=== PATIENT | male | born 1970 | race Caucasian/White ===

== ENCOUNTER 2019-05-23 12:15 | Emergency (ER) | payer BC ==
[~2019-05-23] VITALS: Ht 185.4 cm; Wt 112.5 kg
[2019-05-23 12:23] VITALS: BP 116/80; Ht 185.4 cm; Wt 112.5 kg
[2019-05-23 12:50] LABS: PLATELET COUNT 234 x10^3mcL (130-400)
[2019-05-23 12:51] LABS: RED CELL DISTRIBUTION WIDTH 15.2 % (11.5-14.5)
[2019-05-23 13:15] LABS: CALCIUM 9.6 mg/dL (8.5-10.1); CARBON DIOXIDE 28.8 mmol/L (21-32); CHLORIDE SERUM 106 mmol/L (98-107); CREATININE SERUM 1.1 mg/dL (0.7-1.3); GFR1 > 60 mL/min; GLUCOSE SERUM 86 mg/dL (74-106); POTASSIUM SERUM 4.3 mmol/L (3.5-5.1); SODIUM SERUM 142 mmol/L (136-145)
[2019-05-23 13:29] LABS: ALBUMIN 3.8 g/dL (3.4-5.0); ALKALINE PHOSPHATASE 74 U/L (46-116); ALT/SGPT 29 U/L (16-63); AST/SGOT 18 U/L (15-37); BILIRUBIN TOTAL 0.7 mg/dL (0.20-1.00); TOTAL PROTEIN, SERUM 7.6 g/dL (6.4-8.2)
== END 2019-05-23 14:26 | disposition left against medical advice (07) ==
LOC: ED 12:15
DX: Z53.21 Procedure and treatment not carried out due to patient leaving prior to being seen by health care provider (principal)